=== PATIENT | male | born 1990 | race Caucasian/White ===

== ENCOUNTER 2017-06-25 11:34 | Emergency (ER) | payer BC ==
[~2017-06-25] VITALS: Ht 182.9 cm; Wt 77.1 kg
[2017-06-25] MEDS ORDERED: DiphenhydrAMINE 50mg/ml Inj IM ONE (12:15)
[2017-06-25] MEDS ORDERED: Ketorolac 60mg Inj IM ONE (12:15)
--- NOTE | 2017-06-25 12:34 | Emergency Room Report ---
History of Present Illness General Chief Complaint: Headache Source: Patient Present Illness [facility] The patient is a 27-year-old male who denies medical history presenting for 3 days of nausea, vomiting, headache, fever, chills, myalgia, cough, and fatigue. He denies any known sick contacts or recent travel. Pain is a 9/10 sharp sensation primarily to his head. No known provoking relieving factors. He denies other symptoms including hematemesis, diarrhea, neck pain or stiffness , rash Allergies: Coded Allergies: No Known Allergies (Unverified , 06/25/17) Patient History Past Medical History: see triage record Pertinent Family History: none Reviewed Nursing Documentation: PMH: Agreed, PSxH: Agreed Nursing Documentation-PMH Past Medical History: No Stated History Review of Systems All Other Systems: negative except mentioned in HPI Physical Exam Vital Signs Date Time Temp Pulse Resp B/P (MAP) Pulse Ox O2 Delivery O2 Flow Rate FiO2 06/25/17 11:39 101.1 116 21 122/62 95 Room Air Sp02 EP Interpretation: reviewed, normal General Appearance: no apparent distress, alert, GCS 15, non-toxic, lethargic Head: normocephalic, atraumatic Eyes: bilateral eye normal inspection, bilateral eye PERRL ENT: no angioedema, uvula midline, pharyngeal erythema Neck: full range of motion, supple/symm/no masses Respiratory: chest non-tender, lungs clear, normal breath sounds, no wheezing, speaking full sentences Cardiovascular #1: regular rate, rhythm, no edema Musculoskeletal: back normal, gait/station normal, normal range of motion, non- tender Neurologic: alert, oriented x3, responsive, motor strength/tone normal, sensory intact, speech normal Psychiatric: judgement/insight normal, memory normal, mood/affect normal, no suicidal/homicidal ideation Skin: normal color, no rash, warm/dry, well hydrated Lymphatic: no adenopathy Medical Decision Making PA Attestation Dr. Ceja is my supervising physician. Patient management was discussed with my supervising physician Diagnostic Impression: Primary Impression: Influenza ER Course The patient is a 27-year-old male who denies medical history presenting for 3 days of nausea, vomiting, headache, fever, chills, myalgia, cough, and fatigue Differential diagnosis include but not limited to influenza, pharyngitis, sinusitis, AOM, bronchitis, PNA Physical exam: Patient is febrile. Lethargic HEENT exam reveals pharyngeal erythema. No exudate. Nasal congestion Lungs are clear to auscultation bilaterally. No respiratory distress Skin warm and dry The patient is given Toradol, reglan, and benadryl and is feeling better. The patient will be treated with motrin, zofran, cough medication. he is given strict ER precautions. Microbiology Date/Time Source Procedure Growth Status 06/25/17 12:36 Nasal Nares Influenza Types A,B Antigen (GABY) - Final Complete Lab Results Impression negative Last Vital Signs Date Time Temp Pulse Resp B/P (MAP) Pulse Ox O2 Delivery O2 Flow Rate FiO2 06/25/17 11:39 101.1 116 21 122/62 95 Room Air Status: improved Disposition: HOME, SELF-CARE Condition: Improved Scripts Codeine/Promethazine Hcl* (PROMETHAZINE-CODEINE SYRUP*) 118 Ml Syrup 5 ML ORAL Q6H Y for For Cough, #118 ML 0 Refills Prov: LEIDA CHO P.A. 06/25/17 Ondansetron* (ZOFRAN*) 4 Mg Tablet 4 MG ORAL Q6H Y for Nausea & Vomiting, #15 TAB Prov: TERZIANLEIDA P.A. 06/25/17 Ibuprofen* (MOTRIN*) 600 Mg Tablet 600 MG ORAL Q8H Y for For Pain, #30 TAB 0 Refills Prov: TERZIANLEIDA P.A. 06/25/17 Referrals: NOT CHOSEN IPA/,REFERRING (PCP) LEIDA CHO Jun 25, 2017 12:34
[2017-06-25] MEDS ORDERED: PROMETHAZINE-C118 M1 ORAL (13:13)
[2017-06-25] MEDS ORDERED: IBUPROFEN600 MG ORAL (13:13)
[2017-06-25] MEDS ORDERED: ZOFRAN4 M3 ORAL (13:13)
[2017-06-25 13:26] VITALS: BP 125/74
[2017-06-25] MEDS ORDERED: Metoclopramide 10mg/2ml Inj IM SCH (14:00)
== END 2017-06-25 13:21 | disposition home or self-care (01) ==
LOC: EMR 12:14
DX: J11.1 Influenza due to unidentified influenza virus with other respiratory manifestations (principal)
CPT/HCPCS: 86710; 96372; 99284; J1200; J2765